=== PATIENT | female | born 1965 | race Caucasian/White ===

== ENCOUNTER 2025-05-14 10:56 | Emergency (ER) | payer OTHER, MEDICAID, SELFPAY ==
--- NOTE | 2025-05-14 10:57 | ED_ITS ---
HPI - Skin/Abscess/Foreign Bdy General Chief complaint: Wound/Laceration Stated complaint: insect sting/ hand swelling Time Seen by Provider: 05/14/25 11:12 Source: patient, RN notes reviewed and old records reviewed Mode of arrival: ambulatory Limitations: no limitations History of Present Illness HPI narrative: 59-year-old female presents to the [facility] with right hand swelling. Reports that she was stung between the fingers on x 2days ago. Patient reports that she was at the pool, went to put her hand down on a chair and stand when she was stung. Did take 1 Benadryl yesterday, 1 Pepcid yesterday, to ibuprofen yesterday. Has full range of motion with sensation intact. Capillary refill under 2 seconds Related Data Home Medications ?Medication ?Instructions ?Recorded ?Confirmed ?Last Taken ?Type amlodipine 5 mg tablet mg 05/14/25 Unknown History aspirin 81 mg capsule 81 mg PO DAILY 05/14/25 05/14/25 Unknown History cinnamon bark 500 mg capsule 500 mg PO DAILY 05/14/25 05/14/25 Unknown History (Cinnamon) coenzyme Q10 10 mg capsule (Co 10 mg PO ONCE 05/14/25 05/14/25 Unknown History Q-10) cyclobenzaprine 10 mg tablet mg 05/14/25 Unknown History esomeprazole magnesium 20 mg 20 mg PO DAILY 05/14/25 05/14/25 Unknown History capsule,delayed release (Nexium) gabapentin 600 mg tablet mg 05/14/25 Unknown History lorazepam 0.5 mg tablet mg 05/14/25 Unknown History losartan 100 mg tablet mg 05/14/25 Unknown History metformin 500 mg tablet mg 05/14/25 Unknown History fashcdhncngw-Of-fhiq-minerals 18 tablet PO 05/14/25 Unknown History mg-0.4 mg tablet omega 1-xhn-jhs-fish oil 1,000 mg 1 cap PO DAILY 05/14/25 05/14/25 Unknown History (120 mg-180 mg) capsule (Fish Oil) pravastatin 10 mg tablet mg 05/14/25 Unknown History venlafaxine 25 mg tablet mg 05/14/25 Unknown History Allergies Allergy/AdvReac Type Severity Reaction Status Date / Time prednisone AdvReac Mild Anxiety Verified 05/14/25 11:10 NSAIDS AdvReac Intermediate Other Uncoded 05/14/25 11:10 Review of Systems Review of Systems: All systems reviewed & are unremarkable except as noted in HPI and below Constitutional: Constitutional: Reports no additional constitutional complaints ENT: Reports system reviewed and no additional complaints, except as documented Cardiovascular: Cardiovascular: Reports no additional cardiovascular complaints, Denies chest pain and Denies dyspnea Respiratory: Respiratory: Reports no additional respiratory complaints, Denies chest congestion, Denies cough and Denies dyspnea Musculoskeletal: Musculoskeletal: Reports no additional musculoskeletal complaints Integumentary/Breasts: Skin/Breast: Reports as per HPI PMFSH Comments At the time of my signature, I reviewed and agree with the nursing past medical, surgical, social, and family history. There is no relevant family history pertinent to the patient complaint. Exam Const: General: cooperative, healthy appearing, comfortable, no acute distress, well developed, alert and well nourished Nutritional Appearance: well nourished Orientation/consciousness: patient oriented x3 Limitations: no limitations HENMT: Head: normal to inspection Eyes: General: appearance normal, both eyes and all related structures Alignment and Position: alignment normal Neck: Neck: normal visual inspection, full ROM, no lymphadenopathy and no meningeal signs Chest: Chest palpation & inspection: normal inspection of the chest Resp: Effort & Inspection: normal respiratory effort and able to speak in complete sentences Cardio: Rate: regular rate Skin: General skin exam: normal color and no rashes or lesions noted Other: Red area between fingers 2 and 3, insect sting. Generalized hand swelling without increased erythema, ecchymosis. Neuro: General: patient oriented x3, gait normal, moves all extremities and no meningeal signs Cognition (Neuro): normal cognition Speech: normal speech Gait exam (Neuro): Normal gait present Extrem: General: normal to inspection, full ROM, capillary refill normal and normal gait Right upper extremity: Extremity exam: right hand normal capillary refill, neuromotor exam normal wrist extension normal, thumb opposition normal, thumb IP flexion normal, thumb ADduction normal and fingers 2-5 ABduction normal and swelling; no ecchymosis Psych: Appearance: grossly normal and well kempt Mental Status: mental status grossly normal Speech and movement: Normal speech and movement present and Clear speech present Affect: normal affect Attitude: cooperative Course Course Level of Care: Express Care Visit Vital Signs Vital signs: Vital Signs Temperature 97.4 F L 05/14/25 11:09 Pulse Rate 99 05/14/25 11:09 Respiratory Rate 18 05/14/25 11:09 Blood Pressure 121/89 05/14/25 11:09 Pulse Oximetry 98 05/14/25 11:09 Oxygen Delivery Room Air 05/14/25 11:09 Temperature 97.4 F L 05/14/25 11:09 Pulse Rate 99 05/14/25 11:09 Respiratory Rate 18 05/14/25 11:09 Blood Pressure 121/89 05/14/25 11:09 Pulse Oximetry 98 05/14/25 11:09 Oxygen Delivery Room Air 05/14/25 11:09 Reviewed MDM - Skin/Abscess/Foreign Bdy MDM Narrative Medical decision making narrative: Patient sitting in exam room. Patient is nontoxic, vitals stable. Patient presents two days posting. Patient with localized reaction to the insect sting. No cellulitic changes Patient reports increased anxiety to prednisone. Discussed [id number]-[id number] treatments. Discussed using dexamethasone, may have less side effect of anxiety but still may an anxiety side effect. Patient verbalized understanding and is willing to give it a try Patient appropriate for outpatient treatment with close follow-up Discharge instructions reviewed with patient, as well as provided in writing per nursing staff. The instructions also include specific and strict return/GO TO THE ER as well as f/u information. All questions have been answered, and the patient deny any further questions with discharge and discharge plan. Some parts of this dictation were generated by voice recognition software and may contain typographical and/or grammatical inaccuracies. Differential Diagnosis Differential diagnosis: Likely abscess of skin or subcutaneous tissue, cellulitis, insect bites, impetigo and contact dermatitis Critical Care Time Critical Care Time Critical Care Time: No Discharge Plan Discharge Clinical Impression: Allergic reaction to insect sting Patient Disposition: Home Condition: Stable Instructions: Insect Bite or Sting (ED), General Allergic Reaction (ED) Additional Instructions: The most important part of your care is follow up with Primary care provider. Take Benadryl 25 mg every 8 hours for itching Take Zyrtec every day for 7 days Take Pepcid 20mg daily for 7 days Take the steroids starting today and take daily Avoid hot showers, Take cool showers. Hot showers will make rashes worse Apply cool compresses every 2-3 hours for 15 minutes Go to the ER for new or worsening symptoms such as shortness of breath. Patient Language: Faroese Prescriptions: New dexamethasone 4 mg tablet 4 mg PO DAILY Qty: 5 0RF Rx Instructions: Take 1 tablet daily for 3 days, half tablet daily for 3 days No Action cyclobenzaprine 10 mg tablet metformin 500 mg tablet gabapentin 600 mg tablet amlodipine 5 mg tablet lorazepam 0.5 mg tablet pravastatin 10 mg tablet losartan 100 mg tablet esomeprazole magnesium [Nexium] 20 mg capsule,delayed release(DR/EC) 20 mg PO DAILY aspirin 81 mg capsule 81 mg PO DAILY venlafaxine 25 mg tablet cinnamon bark [Cinnamon] 500 mg capsule 500 mg PO DAILY omega 3-nlv-tio-fish oil [Fish Oil] 1,000 (120-180) mg capsule 1 cap PO DAILY coenzyme Q10 [Co Q-10] 10 mg capsule 10 mg PO ONCE pnmrhoumsglc-Fd-peoa-minerals 18-0.4 mg tablet PO Follow-up/Referrals: UNKNOWN,DOCTOR [Non-Staff] - Time of Disposition: 11:27
[2025-05-14 11:09] VITALS: BP 121/89; PULSE 99; RESP 18; TEMP 36.3; O2SAT 98
== END 2025-05-14 11:30 | disposition home or self-care (01) ==
PROVIDERS: Emergency Provider Nurse Practitioner
DX: T63.481A Toxic effect of venom of other arthropod, accidental (unintentional), initial encounter (principal); I10 Essential (primary) hypertension; E78.00 Pure hypercholesterolemia, unspecified; K21.9 Gastro-esophageal reflux disease without esophagitis; E11.9 Type 2 diabetes mellitus without complications; Z85.528 Personal history of other malignant neoplasm of kidney; Z90.5 Acquired absence of kidney; Z90.89 Acquired absence of other organs; Z79.82 Long term (current) use of aspirin; Z87.891 Personal history of nicotine dependence
CPT/HCPCS: 99203; G0463